=== PATIENT | female | born 1955 | race Caucasian/White ===

== ENCOUNTER 2016-04-30 07:36 | Emergency (ER) | payer BC, OTHER ==
[2016-04-30 07:49] VITALS: BP 149/91
--- NOTE | 2016-04-30 08:07 | ERNOTE ---
ENT HPI Date of Service: 04/30/16 Presenting Symptoms: other - CLOUDINESS OF VISION TO LEFT LATERAL UPPER EYE ON AWAKENING. NO PAIN. Time Seen by Provider: 04/30/16 08:06 Source: patient Exam Limitations: no limitations - Immun/Allergies/Home Medications Immunizations: IMMUNIZATION HX Immunizations Up to Date Yes History of Influenza Vaccine No Allergies/Adverse Reactions: Allergies Allergy/AdvReac Type Severity Reaction Status Date / Time No Known Allergies Allergy Unverified 04/30/16 07:48 Home Medications: HOME MEDICATIONS NK [No Home Medication] 04/30/16 [Last Taken Unknown] - History of Present Illness Narrative: PT STATES SHE AWAKENED EARLIER THIS A.M. AND NOTED CLOUDY VISION TO THE UPPER OUTER QUADRANT OF HER LEFT EYE. SAYS SHE WAS FINE WHEN SHE WENT TO BED. SHE DENIES ANY PAIN. SAYS THIS HAS NEVER HAPPENED BEFORE. DENIES GALLSES OR CONTACTS. SHE SEEMS QUITE ANXIOUS, ALMOST AGGITATED ABOUT THIS. DENIES ANY MEDS. OR MEDICAL PROBLEMS. SHE DID TRY TO MANSOOR HER EYE OUT WITH A LITTLE WATER AND TRIED SOME OTC EYE DROPS WITHOUT HELP. Review of Systems - Review of Systems Constitutional: Present: See HPI EYE: Present: see HPI, blurred vision, vision changes. Absent: eye pain, eye discharge, double vision ENT: Present: no symptoms reported All Other Systems: All systems neg except as marked - Patient's Past Medical History Patient History - Medical: No pertinent hx Patient History - Cardiac/Respiratory: No pertinent hx Patient History - Cancer: No Hx of Cancer Patient History - Surgical Procedures: Hysterectomy Patient History - Other: None - Social History Living Situations: home Psych History: No pertinent hx Smoking Status: Current every day smoker Have you smoked in the past 12 months: Yes Alcohol Use: occasionally Drug Use: none - Immunizations Immunizations Up to Date: Yes History of Influenza Vaccine: No Physical Exam - Physical Exam General Appearance: Present: wd/wn, alert, anxious Eye Exam: Normal inspection: bilateral - NO EVIDENCE OF ERYTHEMA OR DRAINAGE , FUNDI APPEAR NL.- SL. CLOUDY BILATERALLY, PERRL: bilateral, EOMI: bilateral, Other: bilateral - VISUAL ACUITY = 20/100 ON LEFT EYE AND 20/30 ON RIGHT EYE ED Progress - Date and Time Seen: Date and Time: 04/30/16 09:[address] RODRIGUEZ TO SEE IF HE COULD SEE HER IN THE OFFICE. HE HAPPENS TO BE HERE TODAY AND WILL SEE HER IN THE OFFICE. - Vital Signs Vital Signs: Vital Signs 04/30/16 07:45 Temperature 36.1 C L Pulse Rate 88 Respiratory 16 Rate Blood Pressure 149/91 O2 Sat by Pulse 98 Oximetry - Progress/Reassessment Chief Complaint: Eye Injury/Trauma Departure Clinical Impression: Visual acuity reduced - Departure Disposition: Screened sent Dir. to [facility]. off Condition: Good Instructions: Visual Disturbances Additional Instructions: GO DIRECTLY TO DR RODRIGUEZ OFFICE HERE IN THE CLINIC TODAY AND HE WILL SEE YOU. Referrals: Maria Isabel Hernandez MD [Primary Care Provider] -
--- OUTSIDE RECORDS SUMMARY | 2016-04-30 09:03 | XMS REPORT | Continuity of Care Document ---
:1955 Author Organization [facility] ([facility]) Address [address] [place] [address] Phone [phone] Care Team Providers Name Role Phone Unavailable Primary Care Provider Unavailable Source Comments This disclosure is being made pursuant to the Care Everywhere program, applicable federal and state laws, and may not contain all informaitonavailable regarding this patient.[facility] ([facility]) Active Allergies and Adverse Reactions Not on File Current Medications Not on file Active Problems Not on file Social History Tobacco Use Types Packs/Day Years Used Date Never Assessed Plan of Care Health Maintenance Due Date Last Done Comments HCV Screening 1955 Hepatitis B Vaccine (1 of 3 - Primary Series) 1955 Tdap Vaccine 10/20/1967 Lipid Disorder Screening 1974 MMR Vaccine 1974 Td Vaccine 1974 Cervical Cancer Screening 1986 Mammogram 1996 Colonoscopy 2006 Influenza Vaccine: Seasonal (#1) 10/13/2015 Results from Last 3 Months Not on file
== END 2016-04-30 09:52 | disposition home or self-care (01) ==
LOC: ER 07:36
DX: H54.7 Unspecified visual loss (principal); F17.210 Nicotine dependence, cigarettes, uncomplicated